=== PATIENT | male | born 1955 | race Caucasian/White ===

== ENCOUNTER → 2018-12-27 10:37 | Outpatient (CLI) | payer BC, SELFPAY ==
--- NOTE | 2018-12-27 | DI.RAD.S_ITS ---
PROCEDURE: XR LUMBAR SPINE 2-3V INDICATIONS: BACK PAIN TECHNIQUE: 3 views of the lumbar spine were acquired. COMPARISON: [facility], MR, L-SPINE WITHOUT CONTRAST, 08/24/2014, 7:23. [facility], CR, L-SPINE 2-3 VIEWS, 02/12/2007, 9:02. FINDINGS: Bones: 5 [id number] vertebrae are present. There is normal bony alignment. No vertebral body compression fractures. No suspicious bony lesions. There is degenerative disc disease, moderate to severe at L4-L5, mild to moderate at L1-L2, L2-L3, L3-L4 and L5-S1. There is moderate facet arthropathy at L4-L5. Soft tissues: Overlying bowel gas pattern is normal. No suspicious soft tissue calcifications. IMPRESSION: Degenerative disc and facet disease. Dictated by: Manjit House M.D. on 12/27/2018 at 12:13 Approved by: Manjit House M.D. on 12/27/2018 at 12:19
== END ==
PROVIDERS: PCP Family Medicine; Visit Provider Family Medicine
DX: M54.5 Low back pain (principal); M51.36 Other intervertebral disc degeneration, lumbar region; M51.37 Other intervertebral disc degeneration, lumbosacral region; M47.816 Spondylosis without myelopathy or radiculopathy, lumbar region
CPT/HCPCS: 72100

== ENCOUNTER → 2019-04-27 07:42 | Outpatient (CLI) | payer BC, SELFPAY ==
--- NOTE | 2019-04-27 08:29 | DI.ECHO.S_ITS ---
Echocardiogram Report + + :Name: BARBARA JACQUES Study Date: 04/27/2019 Height: 68 in : :[facility] Exam Location: [facility] Weight: 147 lb : : Gender: Male BSA: 1.8 m2 : :: 1955 Age: 63 yrs BP: 124/80 mmHg: :Reason For Study: Aortic valve regurgitation : :Ordering Physician: Edel Boogie Performed By: Lexie Page : + + Interpretation Summary 1) Normal left ventricular size, wall motion, and systolic function (EF 60- 65%). 2) Normal right ventricular size and function. 3) There is mild to moderate aortic stenosis (valve area 1.8cm2, mean gradient 21mmHg, severity ratio 0.42). 4) There is mild to moderate aortic regurgitation. 5) The ascending aorta is mildly enlarged at 4.1cm. 6) Compared to the Echo done 05/14/2017, no significant change. Procedure: A two-dimensional transthoracic echocardiogram with color flow and Doppler was performed. The study quality was technically adequate. Comparison is made with the echocardiogram of 05/14/2017. The patient was in sinus bradycardia with heart rates between 48-53 bpm during the exam. Left Ventricle: The left ventricle is normal in size, wall thickness, and systolic function without any focal wall motion abnormalities. The ejection fraction is estimated to be 60-65%. Diastolic parameters suggest probable normal left ventricular diastolic function and normal filling pressures. Right Ventricle: The right ventricle is normal in size and function. Atria: The left atrium is severely dilated. Right atrial size is normal. There is no Doppler evidence for an interatrial shunt. Mitral Valve: The mitral valve leaflets appear mildly thickened, but open well. Redundant elongated chordae are noted. There is trace mitral regurgitation. Aortic Valve: The aortic valve is not well visualized. The aortic valve is moderately calcified. The peak aortic velocity is 3.2 m/sec. The peak aortic velocity on the previous exam was 3.2 m/sec. The aortic valve mean gradient is 21 mmHg. The calculated aortic valve area is 1.8 cm2. There is mild to moderate aortic stenosis. There is mild to moderate aortic regurgitation. Tricuspid Valve: The tricuspid valve is normal in structure and function. There is trace tricuspid regurgitation. The right ventricular systolic pressure is estimated to be at least 21 mmHg based on an estimated right atrial pressure of 3 mm Hg. Pulmonic Valve: The pulmonic valve is not well visualized. There is trace pulmonic regurgitation. Great Vessels: The aortic root is normal size. The ascending aorta is mildly enlarged. Mild atherosclerotic plaque(s) in the aortic arch. The pulmonary artery is not well visualized, but is probably normal size. The IVC is of normal diameter and collapses greater than 50% with a sniff. This suggests a low right atrial pressure of 3 mm Hg. Pericardium/ Pleura There is no pericardial effusion. There is no pleural effusion. MMode/2D Measurements & Calculations LVIDd: 4.2 cm LVOT diam: 2.3 cm LVIDs: 2.4 cm Ao root diam: 3.1 cm FS: 42.3 % asc Aorta Diam: 4.1 cm IVSd: 0.97 cm LVPWd: 0.72 cm LV west. diameter/BSA (cm/m^2): 2.3 LV sys. diameter/BSA (cm/m^2): 1.3 LA A2 area: 22.1 cm2 RA long axis: 4.4 cm LA A4 area: 20.6 cm2 RA area: 14.8 cm2 LA length (vol): 4.9 cm RA vol: 42.5 ml LA vol: 78.9 ml RA : 23.7 ml/m2 LA vol index: 44.0 ml/m2 IVC diam: 1.7 cm RVD1 (basal): 4.3 cm RVD2 (mid): 4.0 cm TAPSE: 1.9 cm Doppler Measurements & Calculations Ao V2 max: 324.7 cm/sec LVOT Max Benedict: 134.6 cm/sec Ao V2 mean: 216.0 cm/sec LV V1 max P.2 mmHg Ao max P.2 mmHg LV V1 VTI: 29.5 cm Ao mean P.0 mmHg MARIBEL(I,D): 1.8 cm2 Ao V2 VTI: 70.3 cm MARIBEL(V,D): 1.8 cm2 sev ratio: 0.42 MARIBEL indexed to BSA (cm^2/m^2): 1.0 AI P1/2t: 669.9 msec AI dec slope: 167.8 cm/sec2 MV E max benedict: 54.8 cm/sec TR max benedict: 213.2 cm/sec MV A max benedict: 81.7 cm/sec TR max P.2 mmHg MV E/A: 0.67 PA V2 max: 85.7 cm/sec Med Peak E' Benedict: 6.4 cm/sec PA V2 mean: 57.9 cm/sec E/E' med: 8.5 PA mean P.5 mmHg Lat Peak E' Benedict: 9.2 cm/sec PA Accel Time: 0.11 sec E/E' lat: 6.0 E/e' average: 7.3 MV dec time: 0.28 sec MV P1/2t: 83.1 msec MV /2t max benedict: 55.2 cm/sec SV(LVOT): 126.9 ml MVA(2t): 2.6 cm2 _ Reading Physician:10:15 AM
== END ==
PROVIDERS: PCP Family Medicine; Visit Provider Family Medicine
DX: I35.1 Nonrheumatic aortic (valve) insufficiency (principal); I35.0 Nonrheumatic aortic (valve) stenosis; Q23.9 Congenital malformation of aortic and mitral valves, unspecified
CPT/HCPCS: 93306

== ENCOUNTER → 2020-11-02 14:53 | Outpatient (CLI) | payer MEDICARE, OTHER, SELFPAY ==
[2020-11-02] MEDS: COVID-19 VACC #1, MRNA(MOD) 100 MCG/0.5 ML VIAL IM (15:24)
== END ==
PROVIDERS: PCP Family Medicine; Visit Provider Internal Medicine
DX: Z23 Encounter for immunization (principal)
CPT/HCPCS: 0011A; 91301

== ENCOUNTER → 2020-11-28 16:23 | Outpatient (CLI) | payer MEDICARE, OTHER, SELFPAY ==
[2020-11-28] MEDS: COVID-19 VACC #2, MRNA(MOD) 100 MCG/0.5 ML VIAL IM (16:35)
== END ==
PROVIDERS: PCP Family Medicine; Visit Provider Internal Medicine
DX: Z23 Encounter for immunization (principal)
CPT/HCPCS: 0012A; 91301

== ENCOUNTER → 2021-01-14 08:54 | Outpatient (CLI) | payer MEDICARE, OTHER, SELFPAY ==
--- NOTE | 2021-01-14 | DI.ECHO.S_ITS ---
[facility] : : [address] : : : : [id number] : : : : Phone: [phone]+ Echocardiogram Report + + :Name: BARBARA JACQUES Study Date: 01/14/2021 Height: 66 in : :[facility] ReadingLocation: Weight: 145 lb : : Gender: Male BSA: 1.7 m2 : :: 1955 Age: 65 yrs BP: 175/92 mmHg: :Reason For Study: Aortic valve regurgitation : :Ordering Physician: PATRICK, : :EMERSON Performed By: Jayy Rosas : :Referring: EMERSON NGUYEN : + + Interpretation Summary 1) Normal left ventricular size, wall motion, and systolic function (EF 60- 65%). 2) Normal right ventricular size and function. 3) There is moderate aortic stenosis (valve area 1.4cm2, mean gradient 25mmHg, severity ratio 0.43). 4) There is mild to moderate aortic regurgitation. 5) The ascending aorta is mildly enlarged at 4.0cm. 6) Compared to the Echo done 04/27/2019, aortic stenosis has slightly progressed from mild-moderate to moderate on this study. Procedure: A two-dimensional transthoracic echocardiogram with color flow and Doppler was performed. The study quality was technically adequate. Comparison is made with the echocardiogram of 04/27/2019. The patient was in sinus rhythm with heart rates between 57-62 bpm during the exam. Left Ventricle: The left ventricle is normal in size and wall thickness. Left ventricular systolic function is normal. The ejection fraction is estimated to be 60-65%. There are no focal wall motion abnormalities. Diastolic parameters suggest probable normal left ventricular diastolic function and normal filling pressures. Right Ventricle: The right ventricle is normal in size and function. Atria: Both atria are normal in size. There is no Doppler evidence for an interatrial shunt. Mitral Valve: The mitral valve is normal in structure and function. There is trace mitral regurgitation. Aortic Valve: A bicuspid aortic valve cannot be excluded. The aortic valve is moderately calcified. There is moderate aortic stenosis. The aortic valve mean gradient is 26 mmHg. There is mild to moderate aortic regurgitation. Tricuspid Valve: The tricuspid valve is normal in structure and function. There is trace tricuspid regurgitation. Pulmonary artery pressures cannot be estimated because of the lack of a measurable TR jet velocity but the IVC suggests a CVP of around 3 mmHg. Pulmonic Valve: The pulmonic valve is not well seen, but is grossly normal. There is mild pulmonic regurgitation. Great Vessels: The aortic root is normal size. The ascending aorta is mildly enlarged. The IVC is of normal diameter and collapses greater than 50% with a sniff. This suggests a low right atrial pressure of 3 mm Hg. Pericardium/ Pleura There is no pericardial effusion. There is no pleural effusion. MMode/2D Measurements & Calculations LVIDd: 5.0 cm LVOT diam: 2.1 cm LVIDs: 3.3 cm Ao root diam: 3.0 cm FS: 33.2 % asc Aorta Diam: 4.0 cm IVSd: 0.97 cm LVPWd: 0.85 cm LV west. diameter/BSA (cm/m^2): 2.9 LV sys. diameter/BSA (cm/m^2): 1.9 LA A2 area: 16.9 cm2 RA area: 12.6 cm2 LA A4 area: 17.0 cm2 IVC diam: 1.5 cm LA length (vol): 4.6 cm LA vol: 53.1 ml LA vol index: 30.4 ml/m2 RVD1 (basal): 3.8 cm TAPSE: 2.3 cm Doppler Measurements & Calculations Ao V2 max: 343.9 cm/sec LVOT Max Benedict: 145.2 cm/sec Ao V2 mean: 239.8 cm/sec LV V1 max P.4 mmHg Ao max P.3 mmHg LV V1 VTI: 32.7 cm Ao mean P.6 mmHg MARIBEL(I,D): 1.5 cm2 Ao V2 VTI: 75.8 cm MARIBEL(V,D): 1.4 cm2 sev ratio: 0.43 MARIBEL indexed to BSA (cm^2/m^2): 0.85 AI P1/2t: 575.3 msec AI dec slope: 180.6 cm/sec2 MV E max benedict: 92.9 cm/sec PA V2 max: 140.0 cm/sec MV A max benedict: 94.9 cm/sec PA V2 mean: 90.3 cm/sec MV E/A: 0.98 PA mean P.8 mmHg Med Peak E' Benedict: 8.1 cm/sec PA pr(Accel): 19.8 mmHg E/E' med: 11.5 Lat Peak E' Benedict: 10.2 cm/sec E/E' lat: 9.1 E/e' average: 10.3 MV dec time: 0.20 sec SV(LVOT): 112.4 ml Reading Physician:12:48 PM
== END ==
PROVIDERS: PCP Family Medicine; Referring Provider Family Medicine; Visit Provider Family Medicine
DX: I35.2 Nonrheumatic aortic (valve) stenosis with insufficiency (principal); I77.89 Other specified disorders of arteries and arterioles
CPT/HCPCS: 93306

== ENCOUNTER → 2021-01-23 11:46 | Outpatient (CLI) | payer MEDICARE, OTHER, SELFPAY ==
[2021-01-23 12:51] LABS: COVID19 -Nasal RAPID Negative (Negative)
== END ==
PROVIDERS: PCP Family Medicine; Visit Provider Student in an Organized Health Care Education/Training Program
DX: Z20.822 Contact with and (suspected) exposure to COVID-19 (principal)
CPT/HCPCS: 87635; C9803

== ENCOUNTER 2021-01-25 13:28 | Day surgery (SDC) | payer MEDICARE, OTHER, SELFPAY ==
[2021-01-25] VITALS (13 sets, daily range): BP systolic 105–168; BP diastolic 50–79; PULSE 46–59; RESP 8–16; TEMP 36.5–37.1; O2SAT 90–98; BMI 22.7
--- NOTE | 2021-01-25 12:08 | PM.HP.1 ---
History of Present Illness History of Present Illness Date Patient Seen: 01/25/21 Chief complaint: SDC Narrative: 65 year old male comes in today for consideration of a screening colonoscopy. Two lifetime colonoscopies, 1st colonoscopy in 2005, normal. Last colonoscopy on 10/30/2015 significant for 3-4 mm hepatic polyps x 2, pathology not available at time of dictation. There have been no lower GI symptoms suggesting disease such as change in bowel habits, bleeding, abdominal pain or anemia. There's been no family history of colon cancer or colon polyps. Overall health issues have been stable, including no major cardiac events for at least 6 weeks. PCP: Dr. Boogie Past medical history: Aortic regurgitation, moderate Hemorrhoids, recurrence Lumbar disc disease with sciatica GERD Arthralgia History of colon polyps Hypertension Hyperlipidemia Pulmonary valve stenosis Aortic stenosis moderate Neuritis, lumbosacral, L4/5 nerve impingement, right Nephrolithiasis Degenerative joint disease, back Erectile dysfunction Past surgical history: Vasectomy Right hernia surgery Family history: No colon cancer colon polyps Social history: to Romi, college graduate. Patient History Medical History Heart murmur Pulmonary stenosis Family & Social History Family History Sister Breast cancer Mother Breast cancer Social History: household members spouse Tobacco & Substance use: Smoking Status Never smoker alcohol intake never Meds Home Medications and Allergies Home Medications Medication Instructions Recorded Confirmed Type atorvastatin 10 mg tablet 10 mg PO DAILY 12/07/19 01/25/21 History cholecalciferol (vitamin D3) 50 50 mcg PO DAILY 12/07/19 01/25/21 History mcg (2,000 unit) capsule hydrochlorothiazide 25 mg tablet 25 mg PO DAILY 12/07/19 01/25/21 History Allergies Allergy/AdvReac Type Severity Reaction Status Date / Time No Known Drug Allergies Allergy Verified 04/25/20 11:03 Review of Systems Review of Systems ROS: Yes All systems reviewed with the patient and are negative except as otherwise documented Exam Narrative Exam Narrative: GENERAL: Alert and oriented, appearing stated age and in no acute distress. HEENT: Head normocephalic/atraumatic. Pupils equal, round, and reactive to light and accomodation. Extraocular muscles intact. Tympanic membranes clear. Nasal mucosa moist, septum midline. Oral mucosa moist, no lesions. Neck soft and supple, no lymphadenopathy. LUNGS: Clear to ausculation bilaterally, no wheezes, rhonchi or rales. CV: Normal S1 and S2 with regular rate and rhythm, systolic murmur, no rubs or gallops. ABDOMEN: Soft, non-tender, non-distended, no organomegaly. Positive bowel sounds. EXTREMITIES: No clubbing, cyanosis, or edema. NEURO: Cranial nerves II through XII grossly intact, no focal deficits. PSYCH: Alert and oriented x 3. SKIN: No concerning lesions. Assessment & Plan Assessment & Plan narrative: 1. History of colon polyps 2. Screening for colon cancer Plan for colonoscopy. The nature and character of the procedure as well as anticipated results were discussed. The possibility of not completing the procedure was also discussed. Possible complications including aspiration pneumonia, bleeding, perforation and reaction to medications either for sedation or preparation and missed lesions were discussed. Questions were answered and proceeding to the colonoscopy was elected. Informed consent signed. I sincerely appreciate the referral allowing me to participate in this patient's care. Please contact me with any questions or concerns.
--- NOTE | 2021-01-25 12:14 | PM.OP.ENDO ---
Operative Date/Time/Diagnoses Date of procedure: 01/25/21 Procedure Notes SCOAP/Timeout: 2:54 p.m. Procedure in detail: ENDOSCOPIST: Mandie Garcia MD Sedation RN: Melody Saeed RN Sedation start time: 2:55 p.m. Sedation end time: 15:70 PROCEDURE: Colonoscopy INDICATIONS: 1. History of colon polyps 2. Screening for colon cancer MEDICATION: Levsin 0.125 mg sublingual, incremental doses of Versed and fentanyl until appropriate level sedation achieved. ASA CLASS: 2 CECAL WITHDRAWAL TIME: 10 minutes COMPLICATIONS: None. EXTENT OF PROCEDURE: Cecum. QUALITY OF PREP: Good with portions of liquid stool. PROCEDURE: Prior to insertion of the colonoscope, a digital rectal examination was accomplished with circumferential palpation of the distal rectal mucosa without significant findings being noted. The high-definition colonoscope was passed into the rectum in the usual fashion and advanced over to the cecum without difficulty. The ileocecal valve, appendiceal stoma, and medial wall all could be inspected and no abnormalities were seen. ASCENDING COLON: As the colonoscope was withdrawn, care was taken to expose and inspect the haustral folds and no abnormalities were seen. HEPATIC FLEXURE: Normal, no polyps, diverticula or other abnormalities. TRANSVERSE COLON: Normal, no polyps, diverticula or other abnormalities. DESCENDING COLON: Normal, no polyps, diverticula or other abnormalities. SIGMOID COLON: Normal, no polyps, diverticula or other abnormalities. RECTUM: Normal. J maneuver was produced. There was no significant perianal disease. The J maneuver was broken. The remainder of the rectum was inspected and there was no external hemorrhoid disease. The scope was withdrawn. IMPRESSION: 1. Normal colonoscopy PLAN: 1. Repeat colonoscopy in 10 years. The possibility of a missed lesion including a malignancy has been discussed with the patient previously. Potential alarm symptoms have been discussed and should be reported immediately.
[2021-01-25] MEDS: HYOSCYAMINE 0.125 MG TABLET PO (13:52)
[2021-01-25] MEDS: LACTATED RINGERS 1,000 ML 200 ML IV ×2 (14:15→15:59)
[2021-01-25] MEDS: fentaNYL 250 MCG/5 ML INJ IV (15:01)
[2021-01-25] MEDS: MIDAZOLAM 5 MG/5 ML VIAL IV (15:05)
== END 2021-01-25 16:30 | disposition home or self-care (01) ==
PROVIDERS: PCP Family Medicine; Referring Provider Student in an Organized Health Care Education/Training Program; Visit Provider Student in an Organized Health Care Education/Training Program
PROC: 0DJD8ZZ Inspection of Lower Intestinal Tract, Via Natural or Artificial Opening Endoscopic (ICD-10-PCS; CPT 45378; principal; 2021-01-25 14:30)
DX: Z12.11 Encounter for screening for malignant neoplasm of colon (principal); Z86.010 Personal history of colon polyps; I10 Essential (primary) hypertension; K21.9 Gastro-esophageal reflux disease without esophagitis; E78.5 Hyperlipidemia, unspecified
CPT/HCPCS: G0105; J2250; J3010

== ENCOUNTER 2021-03-05 22:08 | Emergency (ER) | payer MEDICARE, OTHER, SELFPAY ==
[2021-03-05 22:19] VITALS: BP 178/81; PULSE 62; RESP 14; TEMP 36.6; O2SAT 96; BMI 22.0
--- NOTE | 2021-03-05 22:32 | ED_ITS ---
HPI - GI Bleed General Chief complaint: GI Bleed Stated complaint: ruptured hemorrhoid Time Seen by Provider: 03/05/21 22:11 Source: patient Mode of arrival: Ambulatory Limitations: no limitations History of Present Illness HPI Narrative: 65-year-old male nonsmoker with history of hyperlipidemia presents with his in the chief complaint of bleeding at hemorrhoids over the course of the day. He states he has a history of hemorrhoids in the past but never quite as significant as this. He was straining with a bowel movement on Thursday and since then has had what he describes as multiple prolapsed hemorrhoids that had become thrombosed and then spontaneously started bleeding earlier today. He is not dizzy nor weak or lightheaded and does not take any blood thinners. He has very minimal pain. He last had a colonoscopy a few months ago and it was unremarkable. He has had no nausea or vomiting and denies abdominal pain MD complaint: blood on toilet paper Onset (ago): hour(s) Severity: mild Relieving factors: none Exacerbating factors: none Associated symptoms: denies other symptoms Treatments Prior to Arrival: OTC meds Related Data Home Medications Medication Instructions Recorded Confirmed atorvastatin 10 mg tablet 10 mg PO DAILY 12/07/19 01/25/21 cholecalciferol (vitamin D3) 50 50 mcg PO DAILY 12/07/19 01/25/21 mcg (2,000 unit) capsule hydrochlorothiazide 25 mg tablet 25 mg PO DAILY 12/07/19 01/25/21 Allergies Allergy/AdvReac Type Severity Reaction Status Date / Time No Known Drug Allergies Allergy Verified 04/25/20 11:03 Review of Systems Constitutional Constitutional: Denies chills, Denies fatigue, Denies fever(s), Denies frequent falls, Denies lethargy and Denies weakness Eyes Eyes: Denies change in vision, Denies eye discharge, Denies irritation and Denies loss of vision ENT Ears, Nose, Mouth, and Throat: Denies change in voice, Denies dizziness, Denies neck pain, Denies sore throat and Denies throat swelling Cardiovascular Cardiovascular: Denies chest pain, Denies irregular heart rhythm, Denies lightheadedness, Denies palpitations, Denies dyspnea, Denies dyspnea on exertion and Denies orthopnea Respiratory Respiratory: Denies cough, Denies dyspnea, Denies dyspnea on exertion and Denies wheezing Gastrointestinal Gastrointestinal: Denies abdominal pain, Denies change in bowel habits, Denies diarrhea, Denies nausea and Denies vomiting Comments: Bleeding hemorrhoids Musculoskeletal Musculoskeletal: Denies neck pain and Denies numbness Integumentary/Breasts Skin/Breast: Denies pruritus, Denies erythema, Denies rash and Denies wounds Neurologic Neurologic: Denies behavioral changes, Denies confusion, Denies dizziness, Denies frequent falls, Denies loss of vision, Denies numbness and Denies weakness Psychiatric Psychiatric: Denies anxiety, Denies behavioral changes, Denies confusion, Denies depression, Denies homicidal ideation and Denies suicidal ideation Endocrine Endocrine: Denies fatigue, Denies flushing and Denies palpitations Hematologic/Lymphatic Hematologic/Lymphatic: Denies easy bruising Allergic/Immunologic Allergic/Immunologic: Denies urticaria, Denies throat swelling and Denies wheezing Patient History Medical History Heart murmur Pulmonary stenosis Family History Sister Breast cancer Mother Breast cancer Social History marital status: household members: spouse occupational status: previously employed Smoking Status: Never smoker alcohol intake: former substance use type: does not use Smoking Status: Never smoker Substance Use Type: does not use Exam Narrative Exam Narrative: GEN: AOx3 and in mild distress EYES: Pupils are equal, round, and reactive to light and accommodation. Extraoccular muscles are intact bilaterally. There is no subconjunctival hemorrhage or exudate. CHEST: Lungs are clear to auscultation bilaterally and free of wheezes, rales, or rhonchi. Heart rate is regular rhythm, there are no murmurs, clicks, rubs, or gallops. There is no chest wall tenderness. ABD: Abdomen is soft and nontender. There is no guarding or rebound. Bowel sounds are normal in all 4 quadrants. There is no mass or organomegaly. RECTAL: Multiple external hemorrhoids, parents raises the suspicion of possibility of mild early prolapsed rectum, a centrally located, previously thrombosed hemorrhoid is actively bleeding. The blood is dark and nonpulsatile. EXT: Full painless ROM of all extremities with no loss of sensation or strength. SKIN: Warm, pink, and dry. No erythema or rash Initial Vital Signs Initial Vital Signs: Vital Signs Temperature 98 F 03/05/21 22:19 Pulse Rate 62 03/05/21 22:19 Respiratory Rate 14 03/05/21 22:19 Blood Pressure 178/81 H 03/05/21 22:19 Pulse Oximetry 96 03/05/21 22:19 Course Consultations Consultation #1: Discussed with on-call surgery, we sure the opinion that there are no specific or immediate interventions that are appropriate. Recommends use of 4x4s, ABD pad, adult briefs or similar, hemorrhoid cushion and contact the office in the morning for follow-up. Vital Signs Vital signs: Vital Signs - 8 hr 03/05/21 22:19 03/05/21 23:25 Temperature 98 F Pulse Rate 62 60 Respiratory Rate 14 18 Blood Pressure 178/81 H 151/69 H Pulse Oximetry 96 99 MDM - GI Bleed MDM Narrative Medical decision making narrative: Patient with spontaneously bleeding hemorrhoid which had likely been thrombosed. There are other multiple prolapsed hemorrhoids versus early rectal prolapse, difficult to tell on exam. Surgery has encouraged patient to follow closely with our office some will see him. Return precautions given and questions answered to his apparent satisfaction Discharge Plan Departure Patient Disposition: Home Clinical Impression: Bleeding hemorrhoids Instructions: DI for Hemorrhoids Activity Restrictions/Additional Instructions: *You have been diagnosed with [thrombosed and bleeding external hemorrhoids which have become irreducible. I have discussed her case with the on-call surgeon who wants to see you in the office tomorrow and states there is no significant or specific therapy that we can introduce at a time.] *What to do: *Please continue to take your regular medications as directed. [ ] New medication prescriptions sent to your pharmacy: [ ] [ ] New medication written as a paper prescription [x ] No new medications given * please contact Dr. Bloom at [facility] in the morning, let the office know that you were seen in the emergency department and that we would need you to be seen in follow-up *Return to Emergency Department if you should have any new, worsening or concerning symptoms, such as [fever greater than 101 F, shaking chills, worsening pain, persistent vomiting or other bothersome symptoms] Prescriptions: No Action atorvastatin 10 mg tablet 10 mg PO DAILY RF: 0 hydrochlorothiazide 25 mg tablet 25 mg PO DAILY RF: 0 cholecalciferol (vitamin D3) [Vitamin D3] 50 mcg (2,000 unit) capsule 50 mcg PO DAILY RF: 0 Referrals: Dov Bloom MD [Physician] - Jimenez Boogie MD [Primary Care Provider] -
[2021-03-05 23:25] VITALS: BP 151/69; PULSE 60; RESP 18; O2SAT 99
== END 2021-03-05 23:28 | disposition home or self-care (01) ==
PROVIDERS: Emergency Provider Emergency Medicine; PCP Family Medicine
DX: K64.9 Unspecified hemorrhoids (principal)
CPT/HCPCS: 99281

== ENCOUNTER → 2021-03-06 16:17 | Outpatient (CLI) | payer MEDICARE, OTHER, SELFPAY ==
[2021-03-06 17:02] LABS: COVID19 -Nasal RAPID Negative (Negative)
== END ==
PROVIDERS: PCP Family Medicine; Visit Provider Surgery
DX: Z20.822 Contact with and (suspected) exposure to COVID-19 (principal); K64.9 Unspecified hemorrhoids
CPT/HCPCS: 87635; 99214; C9803

== ENCOUNTER 2021-03-07 09:31 | Day surgery (SDC) | payer MEDICARE, OTHER, SELFPAY ==
[2021-03-07] VITALS (11 sets, daily range): BP systolic 121–178; BP diastolic 63–84; PULSE 51–64; RESP 8–16; TEMP 36.1–36.8; O2SAT 94–98; BMI 22.0
--- NOTE | 2021-03-07 | PATH_ITS ---
[facility] Accession Number: [id number] . 01 Material submitted: . hemorrhoids - PROLAPSED INTERNAL HEMORRHOID . 02 Diagnosis: Prolapsed Internal Hemorrhoid, Biopsy: Consistent with hemorrhoidal tissue with erosion. MRV 03/12/2021 1439 Local . 02 Electronically signed: . Anna Francois MD, Pathologist NPI- [id number] . 01 Gross description: . The specimen is received in formalin, labeled prolapsed internal hemorrhoid and consists of three anne-pink mucosal tissue fragments ranging from 1.5-3.0 cm. The margins are inked blue. [employer] sections are submitted in cassettes A1-A3. ([id number]) /V 03/08/2021 1416 Local . 02 Pathologist provided ICD-10: K64.8 . 02 CPT . 492935 Performed at: 01 [facility] [address] [facility], [place], [place] [id number] MD Bear Mccarthy MD Phone: [phone] Performed at: 02 [facility] [address] [place], [place] [id number] MD Anna Francois MD Phone: [phone]
[2021-03-07] MEDS: LACTATED RINGERS 1,000 ML 100 ML IV (10:26)
--- NOTE | 2021-03-07 11:27 | PM.PREOP ---
Pre-operative Note Interval Note History & Physical reviewed/Exam performed by Physician: Yes Changes to H&P: No
--- NOTE | 2021-03-07 12:12 | SUR.OPER ---
Prone on padded OR bed, head in foam head support, gel chest rolls, gel pad under knees, pillow under lower legs, toes free of pressure, arms secured on padded arm boards at <90 degrees abduction. Safety belt at thigh.
[2021-03-07] MEDS: BUPIVACAINE 0.25% (PF) VIAL 30 ML INJ (12:20)
[2021-03-07] MEDS: BUPIVACAINE LIPOSOME 266 MG/20 ML VIAL INJ (12:20)
[2021-03-07] MEDS: DIBUCAINE 1% OINT 28 GM 1 APPLIC TOP (12:21)
[2021-03-07] MEDS: ONDANSETRON 4 MG/2 ML INJ IV (13:24)
--- NOTE | 2021-03-08 10:16 | PM.OP.1 ---
Operative Date/Time/Diagnoses Date of procedure: 03/07/21 Time of procedure: 10:16 Pre-op diagnosis: Incarcerated hemorrhoids Post-op diagnosis: same Procedure & Clinicians Procedure: Excisional hemorrhoidectomy Same procedure as scheduled: Yes Indications: Patient with bleeding incarcerated grade 4 internal hemorrhoids Surgeon: Dov Bloom Anesthesia Type: General Operative Notes Findings: Hemorrhoids with internal and external component, grade 4, with thrombosis of both internal and external component. Specimen(s): other (Hemorrhoids) Estimated Blood Loss (mL): 30 Procedure in detail: The patient was brought to the operating room placed supine on the table. Bilateral lower extremity compression devices were applied. General anesthesia was induced and they were intubated with an endotracheal tube. They were then placed into prone position and appropriately padded. They were then prepped and draped in usual sterile fashion. Time-out was performed. Rectal block was performed by injecting 20 mL of Exparel into the intersphincteric groove. An internal examination of the anal canal was made. The right anterior and right posterior and left lateral hemorrhoid pedicles were large, prolapsed and on reducible consistent with grade 4. There was thrombosis and associated ischemia involving both the external and internal component. Beginning with the left lateral pedicle it was grasped elevated and excised with electrocautery off the internal sphincter. The mucosal defect was then closed with a running 3-0 Vicyrl suture. Hemostasis was checked. The procedure was then repeated for the right anterior and posterior. The specimens were passed off the field. Wound was irrigated with saline. Gelfoam coated in Dibucaine ointment 1% was then placed into the anal canal. Sponge and instrument counts were correct at the end of the procedure. They emerged from anesthesia were extubated and transferred to the postoperative care unit in stable condition. Complications: none Post-operative Condition: stable Disposition: same day surgery
== END 2021-03-07 14:38 | disposition home or self-care (01) ==
PROVIDERS: PCP Family Medicine; Referring Provider Surgery; Visit Provider Surgery
PROC: (CPT 46255; principal; 2021-03-07 10:45)
DX: K64.2 Third degree hemorrhoids (principal); R01.1 Cardiac murmur, unspecified; I10 Essential (primary) hypertension; E78.5 Hyperlipidemia, unspecified
CPT/HCPCS: 46255; C9290; J2405; J2704; J3010

== ENCOUNTER → 2022-12-19 12:32 | Outpatient (CLI) | payer MEDICARE, OTHER, SELFPAY ==
--- NOTE | 2022-12-19 | DI.ECHO.S_ITS ---
[place] [facility]---------+ [facility] +---------+ : : [address] : : : : [id number] : : : : Phone: [phone] Echocardiogram Report + + :Name: BARBARA JACQUES Study Date: 12/19/2022 Height: 68 in : :[facility] ReadingLocation: Weight: 151 lb : : Gender: Male BSA: 1.8 m2 : :: 1955 Age: 67 yrs BP: 133/80 mmHg: :Reason For Study: AORTIC REGURGITATION HR: 55 : :Ordering Physician: PATRICK, : :EMERSON Performed By: BERONICA BO : :Referring: EMERSON NGUYEN : + + Interpretation Summary The ejection fraction is estimated to be 65-70%. Diastolic parameters suggest probable normal left ventricular diastolic function and normal filling pressures. The right ventricle is normal in size and function. There is moderate aortic stenosis. There is mild aortic regurgitation. Pulmonary artery pressures cannot be estimated because of the lack of a measurable TR jet velocity. Ascending aorta 3.9 cm. Compared to the prior study dated 01/14/2021, there is an increase in aortic valve gradient with a decrease in valve area both still consistent with moderate stenosis. Procedure: A two-dimensional transthoracic echocardiogram with color flow and Doppler was performed. The study quality was technically adequate. Comparison is made with the echocardiogram of 01/14/21. The patient was in normal sinus rhythm during the exam. Left Ventricle: The left ventricle is normal in size and wall thickness. Left ventricular systolic function is normal. The ejection fraction is estimated to be 65-70%. Diastolic parameters suggest probable normal left ventricular diastolic function and normal filling pressures. Right Ventricle: The right ventricle is normal in size and function. Atria: Both atria are normal in size. There is no Doppler evidence for an interatrial shunt. Mitral Valve: The mitral valve is normal in structure and function. There is trace mitral regurgitation. Aortic Valve: The aortic valve is moderately calcified. There is moderate aortic stenosis. The peak aortic velocity is 3.3 m/sec. The aortic valve mean gradient is 25 mmHg. The aortic valve area indexed to the BSA is 0.64 . Dimesionless index is 0.40. The calculated aortic valve area is 1.2 cm2. There is mild aortic regurgitation. Tricuspid Valve: The tricuspid valve is normal in structure and function. No tricuspid regurgitation. Pulmonary artery pressures cannot be estimated because of the lack of a measurable TR jet velocity. Pulmonic Valve: The pulmonic valve is not well visualized. There is mild pulmonic regurgitation. Great Vessels: The aortic root is normal size. The ascending aorta is at the upper limits of normal in size. The inferior vena cava appeared normal. Pericardium/ Pleura There is no pericardial effusion. There is no pleural effusion. MMode/2D Measurements & Calculations LVIDd: 4.4 cm LVOT diam: 1.9 cm LVIDs: 2.9 cm Ao root diam: 3.3 cm FS: 34.1 % asc Aorta Diam: 3.9 cm IVSd: 0.80 cm LVPWd: 0.80 cm LV west. diameter/BSA (cm/m^2): 2.4 LV sys. diameter/BSA (cm/m^2): 1.6 LA A2 area: 19.0 cm2 RA long axis: 4.5 cm LA A4 area: 13.2 cm2 LA length (vol): 5.6 cm LA vol: 38.4 ml LA vol index: 21.1 ml/m2 LVLs ap4: 6.9 cm LVLd ap2: 8.0 cm LVLs ap2: 6.5 cm TAPSE_phl: 1.9 cm Doppler Measurements & Calculations Ao V2 max: 330.0 cm/sec LVOT Max Benedict: 123.0 cm/sec Ao V2 mean: 237.0 cm/sec LV V1 max P.1 mmHg Ao max P.6 mmHg LV V1 VTI: 31.1 cm Ao mean P.0 mmHg MARIBEL(I,D): 1.2 cm2 Ao V2 VTI: 77.5 cm MARIBEL(V,D): 1.1 cm2 sev ratio: 0.40 MARIBEL indexed to BSA (cm^2/m^2): 0.64 AI P1/2t: 580.3 msec AI dec slope: 212.0 cm/sec2 MV E max benedict: 72.2 cm/sec PA V2 max: 105.0 cm/sec MV A max benedict: 83.1 cm/sec PA V2 mean: 72.3 cm/sec MV E/A: 0.87 PA mean P.0 mmHg Med Peak E' Benedict: 6.7 cm/sec PA pr(Accel): 20.5 mmHg E/E' med: 10.8 Lat Peak E' Benedict: 7.5 cm/sec E/E' lat: 9.7 E/e' average: 10.3 MV dec time: 0.22 sec SV(LVOT): 90.4 ml AV P1/2t-pr_phl: 592.0 msec AV VR_phl: 0.37 MARIBEL(VTI)/BSA_phl: 0.55 MV P1/2t-pr_phl: 65.0 msec Reading Physician:01:57 PM
== END ==
PROVIDERS: PCP Family Medicine; Referring Provider Family Medicine; Visit Provider Family Medicine
DX: I35.2 Nonrheumatic aortic (valve) stenosis with insufficiency (principal); I37.1 Nonrheumatic pulmonary valve insufficiency
CPT/HCPCS: 93306

== ENCOUNTER → 2025-03-27 08:10 | Outpatient (CLI) | payer MEDICARE, OTHER, SELFPAY ==
--- NOTE | 2025-03-27 08:14 | DI.ECHO.S_ITS ---
[place] +---------+ [facility] : : [address] : [address] : : [id number] : : Phone: [phone] Echocardiogram Report + + :Name: BARBARA JACQUES Study Date: 03/27/2025 Height: 67 in : :[facility] ReadingLocation: Weight: 147 lb : : Gender: Male BSA: 1.8 m2 : :: 1955 Age: 69 yrs BP: 150/81 mmHg: :Reason For Study: AORTIC STENOSIS : :Ordering Physician: PATRICK, : :EMERSON Performed By: Kylee Jackson : :Referring: EMERSON NGUYEN : + + Interpretation Summary Normal left ventricle size with ejection fraction 55-60%. Diastolic parameters suggest a relaxation abnormality of the left ventricle, consistent with probable normal filling pressures. The left atrium is mildly dilated. Moderate aortic stenosis. The peak aortic velocity is 3.7 m/sec (the previous exam was 3.3 m/sec.) Mild to moderate aortic regurgitation. Comparison is made with the echocardiogram of 12/19/2022., aortic stenosis has progressed. Procedure: A two-dimensional transthoracic echocardiogram with color flow and Doppler was performed. The study quality was technically adequate. Comparison is made with the echocardiogram of 12/19/2022. The patient was in sinus bradycardia with heart rates between 50-59 bpm during the exam. Left Ventricle: The left ventricle is normal in size and wall thickness. The ejection fraction is estimated to be 55-60%. There are no focal wall motion abnormalities. Diastolic parameters suggest a relaxation abnormality of the left ventricle, consistent with probable normal filling pressures. Right Ventricle: The right ventricle is normal in size and function. Atria: The left atrium is mildly dilated. Right atrial size is normal. There is no Doppler evidence for an interatrial shunt. Mitral Valve: The mitral valve leaflets appear mildly thickened, but open well. There is trace mitral regurgitation. Aortic Valve: The aortic valve is moderately calcified. There is moderate aortic stenosis. The peak aortic velocity is 3.7 m/sec. The aortic valve mean gradient is 32 mmHg. The calculated aortic valve area is 1.3 cm2. The peak aortic velocity on the previous exam was 3.3 m/sec. There is mild to moderate aortic regurgitation. Tricuspid Valve: The tricuspid valve leaflets are thin and pliable. There is trace tricuspid regurgitation. The right ventricular systolic pressure is estimated to be at least 29 mmHg based on an estimated right atrial pressure of 3 mm Hg. Pulmonic Valve: The pulmonic valve is not well seen, but is grossly normal. There is mild pulmonic regurgitation. Great Vessels: The aortic root is normal size. The ascending aorta is at the upper limits of normal in size. The IVC is of normal diameter and collapses greater than 50% with a sniff. This suggests a low right atrial pressure of 3 mm Hg. Pericardium/ Pleura There is no pericardial effusion. There is no pleural effusion. MMode/2D Measurements & Calculations LVIDd: 5.4 cm LVOT diam: 2.2 cm LVIDs: 3.9 cm Ao root diam: 3.2 cm FS: 27.3 % asc Aorta Diam: 3.9 cm EPSS: 0.72 cm Ao Arch Diam (Prox Trans): 2.7 cm IVSd: 0.84 cm LVPWd: 0.86 cm LV west. diameter/BSA (cm/m^2): 3.0 LV sys. diameter/BSA (cm/m^2): 2.2 LA A2 area: 23.9 cm2 RA long axis: 4.8 cm LA A4 area: 17.2 cm2 RA area: 16.1 cm2 LA length (vol): 5.1 cm RA vol: 46.5 ml LA vol: 68.7 ml RA : 26.2 ml/m2 LA vol index: 38.7 ml/m2 IVC diam: 1.4 cm RVD1 (basal): 3.4 cm RVD2 (mid): 3.2 cm TAPSE: 1.9 cm Doppler Measurements & Calculations Ao V2 max: 373.4 cm/sec LVOT Max Benedict: 127.5 cm/sec Ao V2 mean: 257.0 cm/sec LV V1 max P.5 mmHg Ao max P.9 mmHg LV V1 VTI: 29.5 cm Ao mean P.2 mmHg MARIBEL(I,D): 1.2 cm2 Ao V2 VTI: 91.4 cm MARIBEL(V,D): 1.3 cm2 sev ratio: 0.32 MARIBEL indexed to BSA (cm^2/m^2): 0.70 AI P1/2t: 583.3 msec AI dec slope: 213.6 cm/sec2 MV E max benedict: 77.7 cm/sec TR max benedict: 254.5 cm/sec MV A max benedict: 108.0 cm/sec TR max P.9 mmHg MV E/A: 0.72 PA V2 max: 100.6 cm/sec Med Peak E' Benedict: 4.9 cm/sec PA V2 mean: 63.8 cm/sec E/E' med: 16.0 PA mean P.9 mmHg Lat Peak E' Benedict: 10.8 cm/sec PA pr(Accel): 19.9 mmHg E/E' lat: 7.2 E/e' average: 11.6 MV dec time: 0.30 sec SV(LVOT): 112.9 ml Electronically signed by: Sadie Murray on Reading Physician:03/27/2025 10:36 AM
== END ==
PROVIDERS: PCP Family Medicine; Referring Provider Family Medicine; Visit Provider Family Medicine
DX: I35.2 Nonrheumatic aortic (valve) stenosis with insufficiency (principal)
CPT/HCPCS: 93306